=== PATIENT | male | born 1990 | race Caucasian/White ===

== ENCOUNTER 2023-09-21 11:15 | Outpatient (REF) | payer MEDICAID, SELFPAY ==
[2023-09-22 12:48] LABS: GC Result Negative (Negative)
[2023-09-22 14:44] LABS: Chlamydia Result Positive (Negative); Specimen Description URINE
== END 2023-09-21 11:16 | disposition home or self-care (01) ==
LOC: LBN 11:15
PROVIDERS: PCP Nurse Practitioner Family; Visit Provider Nurse Practitioner Family
DX: R30.0 Dysuria (principal)
CPT/HCPCS: 87491; 87591

== ENCOUNTER → 2023-10-18 12:27 | Outpatient (CLI) | payer SELFPAY ==
--- NOTE | 2023-10-18 12:15 | DI.RAD_ITS ---
Exam(s) XR KNEE LT 4V AP,LAT,BEN,PAT EXAM: XR KNEE LT 4V AP,LAT,BEN,PAT CLINICAL HISTORY: evaluate pathology, injury, [id number]. TECHNIQUE: 2D digital imaging was performed. COMPARISON: No exams were available for comparison FINDINGS: Four views. No evidence of fracture nor joint space narrowing. No osteochondral defects. Bone density normal. No osseous lesions. No osteochondral defects. There appears to be a small amount of increased joint fluid. IMPRESSION: No acute osseous findings. Small amount of increased joint fluid noted. DATA REPOSITORY: RADIATION DOSE DELIVERED:
== END ==
PROVIDERS: PCP Nurse Practitioner Family; Visit Provider Nurse Practitioner Family
DX: S89.92XA Unspecified injury of left lower leg, initial encounter (principal); X58.XXXA Exposure to other specified factors, initial encounter
CPT/HCPCS: 73564

== ENCOUNTER 2023-11-07 14:55 | Outpatient (REF) | payer BC, SELFPAY ==
[2023-11-08 19:33] LABS: HIV-1/2 Ag & Ab Screen Negative (Negative)
[2023-11-08 21:07] LABS: Hepatitis C Ab w Rflx HCV PCR Negative (Negative)
[2023-11-09 12:11] LABS: Syphilis Serology (RPR) Negative (Negative)
[2023-11-09 13:08] LABS: Chlamydia Result Negative (Negative); GC Result Negative (Negative)
== END 2023-11-07 14:56 | disposition home or self-care (01) ==
LOC: LBN 14:55
PROVIDERS: PCP Nurse Practitioner Family; Visit Provider Nurse Practitioner Family
DX: Z20.2 Contact with and (suspected) exposure to infections with a predominantly sexual mode of transmission (principal); Z11.4 Encounter for screening for human immunodeficiency virus [HIV]; Z11.59 Encounter for screening for other viral diseases
CPT/HCPCS: 86803; 87389; 87491; 87591; 86592

== ENCOUNTER 2023-12-07 16:53 | Outpatient (REF) | payer BC, SELFPAY ==
[2023-12-09 14:17] LABS: Chlamydia Result Negative (Negative); GC Result Negative (Negative)
== END 2023-12-07 16:54 | disposition home or self-care (01) ==
LOC: LBN 16:53
PROVIDERS: PCP Nurse Practitioner Family; Visit Provider Nurse Practitioner Family
DX: Z11.3 Encounter for screening for infections with a predominantly sexual mode of transmission (principal)
CPT/HCPCS: 87491; 87591

== ENCOUNTER 2024-03-08 12:12 | Outpatient (REF) | payer BC, SELFPAY ==
[2024-03-09 09:34] LABS: HIV-1/2 Ag & Ab Screen Negative (Negative)
[2024-03-09 13:27] LABS: Chlamydia Result Negative (Negative); GC Result Negative (Negative)
[2024-03-11 12:23] LABS: Hepatitis A Antibody IgM Negative (Negative); Hepatitis B Core Antibody Negative (Negative); Hepatitis B surface Ag Negative (Negative); Hepatitis C Ab w Rflx HCV PCR Negative (Negative)
[2024-03-11 13:01] LABS: Syphilis Serology (RPR) Negative (Negative)
[2024-03-13 10:37] LABS: HSV Type 1 Ab, IgG Negative (Negative); HSV Type 2 Ab, IgG Equivocal (Negative)
== END 2024-03-08 12:13 | disposition home or self-care (01) ==
LOC: LBN 12:12
PROVIDERS: PCP Nurse Practitioner Family; Visit Provider Physician Assistant
DX: Z20.2 Contact with and (suspected) exposure to infections with a predominantly sexual mode of transmission (principal); R21 Rash and other nonspecific skin eruption
CPT/HCPCS: 86704; 86709; 86803; 87340; 87389; 87491; 87591; 86592; 86695; 86696

== ENCOUNTER 2024-04-17 01:38 | Outpatient (CLI) | payer BC, SELFPAY ==
[2024-04-17 12:35] LABS: Calculated LDL 65 mg/dL (<100); Cholesterol 146 mg/dL (<200); HDL Cholesterol 61 mg/dL (40-60); Triglyceride 101 mg/dL (<150)
[2024-04-17 12:36] LABS: Hemoglobin A1C 5.3 % (<5.7)
[2024-04-19 10:28] LABS: HSV Type 1 Ab, IgG Negative (Negative); HSV Type 2 Ab, IgG Positive (Negative)
== END 2024-04-17 01:39 | disposition home or self-care (01) ==
LOC: LOS 01:38
PROVIDERS: PCP Nurse Practitioner Family; Visit Provider Nurse Practitioner Family
DX: Z11.3 Encounter for screening for infections with a predominantly sexual mode of transmission (principal); Z13.1 Encounter for screening for diabetes mellitus; Z13.220 Encounter for screening for lipoid disorders
CPT/HCPCS: 36415; 80061; 83036; 86695; 86696

== ENCOUNTER 2025-07-07 15:13 | Emergency (ER) | payer BC, SELFPAY ==
[2025-07-07 15:31] VITALS: BP 169/87; PULSE 69; RESP 18; TEMP 36.8; O2SAT 98
--- NOTE | 2025-07-07 15:53 | DI.RAD_ITS ---
Exam(s) XR FOOT LT COMPLETE EXAM: XR FOOT LT COMPLETE CLINICAL HISTORY: Injury, swelling. TECHNIQUE: 2D digital imaging was performed. COMPARISON: No exams were available for comparison FINDINGS: 3 views No evidence of acute fracture or diastasis of the Lisfranc joint. Great toe metatarsophalangeal joint appears unremarkable. The more lateral the 2 sesamoid bones this level is bipartite. No degenerative changes in the articulations of the foot. No pes planus. No inferior calcaneal spur. No gas in soft tissues. No radiopaque foreign bodies. IMPRESSION: No significant osseous findings in the left foot. DATA REPOSITORY: RADIATION DOSE DELIVERED:
--- NOTE | 2025-07-07 16:37 | W.ED.GENAD ---
Discharge Plan Disposition Patient Disposition: Home Condition: Stable Discharge Details Clinical Impression: Sprain of foot, left, Fall involving skateboard as cause of accidental injury, Road rash Primary Care Provider: Mart Barker ED Provider: Dimple Smith Home Meds and New Rx's Prescriptions: No Action dorzolamide-timolol 22.3-6.8 mg/mL drops 1 drp ophthalmic (eye) BID Patient Comments: INSTILL 1 DROP INTO THE LEFT EYE TWICE DAILY valacyclovir 500 mg tablet 500 mg PO QDAY Qty: 90 3RF Claritin Liqui-Gel 10 MG capsule 10 mg PO daily prn Discharge Instructions Instructions: Walking Boot, Using Cold for Pain, Foot Sprain ED Additional Instructions: At this time the x-ray shows no acute fracture or broken bone. However please wear the walking boot with the crutches, advance as tolerated. When sitting or lying down, rest ice compression and elevation. If it continues to bother you after 2 to 3 weeks please have her reimage with your PCP. Please wash the rash and abrasions with soap and water, no soaking or swimming. Allow to air dry daily. Please take Tylenol or Ibuprofen with food every 4-6 hours as needed for pain and swelling. Follow up with primary care provider in 3-5 days. Return to ED sooner if any worsening chest pain, abdominal pain, headache vomiting, red streaks or signs infection from any scrapes. Or concerns. Thank you for allowing us to care for you today. Referrals: Mart Barker, [facility] [Primary Care Provider, Medicine] - 2 weeks Referral Note: ER follow up Trauma foot pain Discharge Data Discharge Date/Time-TO BE ENTERED AT DEPARTURE: 07/07/25 17:23 HPI General Mode of arrival: ambulatory (Crutches). Date/Time Provider Initiated Documentation: 07/07/25 15:53. Limitations to Documentation: no limitations. Information obtained by: patient, RN notes reviewed and old records reviewed. HPI Narrative: 20-aget-awvr-old male presents to the ER with chief complaint of left foot pain, swelling right knee and right arm abrasion and some road rash after falling off a electric skateboard. Reports no head injury denies any neck pain back pain chest pain or abdominal pain. His major complaint is his left foot. There is no obvious deformity, does have lateral foot pain. Did not take any medications prior to arrival. He reports having inability to put weight on his foot without pain. Related Data Home Medications ?Medication ?Instructions ?Recorded ?Confirmed loratadine 10 mg capsule (Claritin 10 mg PO daily prn 05/08/18 07/07/25 Liqui-Gel) Held on 07/07/25. Instructions: Pt Stopped/Never Started dorzolamide 22.3 mg-timolol 6.8 1 drp ophthalmic (eye) BID 11/20/24 07/07/25 mg/mL eye drops Held on 07/07/25. Instructions: Pt Stopped/Never Started valacyclovir 500 mg tablet 500 mg PO QDAY #90 tabs 11/20/24 07/07/25 Held on 07/07/25. Instructions: Pt Stopped/Never Started Previous Rx's ?Medication ?Instructions ?Recorded valacyclovir 500 mg tablet 500 mg PO QDAY #90 tabs 11/20/24 Held on 07/07/25. Instructions: Pt Stopped/Never Started Allergies Allergy/AdvReac Type Severity Reaction Status Date / Time No Known Allergies Allergy Verified 07/07/25 15:34 General Stated Complaint: Orthopedic XENA: 4 Review of Systems All systems reviewed & are unremarkable except as noted in HPI and below Constitutional Constitutional: Denies headache(s) ENT Ears, Nose, Mouth, and Throat: Denies vertigo, Denies dizziness and Denies headache(s) Cardiovascular Cardiovascular: Denies chest pain and Denies dyspnea Respiratory Respiratory: Denies dyspnea Gastrointestinal Gastrointestinal: Denies abdominal pain Musculoskeletal Musculoskeletal: Reports as per HPI, Reports arthralgias, Denies numbness and Reports stiffness Integumentary/Breasts Skin/Breast: Reports skin pain, Reports skin swelling, Reports wounds (Abrasion noted to his right elbow right knee and posteriorly upper back, ) and Reports other (Rash, superficial contaminated abrasions) Neurologic Neurologic: Reports as per HPI, Denies abnormal speech, Denies vertigo, Denies dizziness, Denies headache(s) and Denies numbness Exam Narrative Exam Narrative: General: Well Developed, Awake and Alert, conversant. Skin: Warm and Dry HEENT: Head: No palpable deformities, Normocephalic Eyes: Pupils PERRLA, EOM's intact. No periorbital eccymosis or step off Ears: Canal patent. Tympanic membranes are clear . No tobar's sign, no hemptympanum. Nose/Face: Atraumatic. Facial bones nontender to palpation and stable with manipulation. Mouth/Throat: No intraoral trauma. Teeth and mandible are intact. Neck: No midline tenderness, no step off, no deformity to palpation of C-spine. Trachea midline. Chest: No surface trauma. Nontender without crepitus or deformity. Lungs clear to ausculatation bilaterally. Heart: RRR, no rubs, murmurs or gallop. Abdomen: No abrasions, ecchymosis, or surface trauma. Nondistended. Nontender to palpation no guarding, rebound, or rigidity. Pelvis: Nontender to palpation and stable to compression. Femoral pulses strong and equal Extremities: Superficial contaminated abrasions noted to right anterior knee, right elbow and right posterior upper back sensation intact. Peripheral pulses intact and equal. Left foot pain lateral foot. No obvious deformity distal CMS intact. Neuro: ANO x4, GCS 15, cranial nerves II through XII intact. Motor and sensory exam nonfocal. Reflexes are symmetric. Course Vital Signs Vital signs: Vital Signs Temperature 36.8 C 07/07/25 15:31 Pulse 69 07/07/25 15:31 Respiratory Rate 18 07/07/25 15:31 Blood Pressure 169/87 H 07/07/25 15:31 Pulse Oximetry 98 07/07/25 15:31 Temperature 36.8 C 07/07/25 15:31 Pulse 69 07/07/25 15:31 Respiratory Rate 18 07/07/25 15:31 Blood Pressure 169/87 H 07/07/25 15:31 Pulse Oximetry 98 07/07/25 15:31 Pain Level 7 07/07/25 15:31 Medical Decision Making 57-xsik-[age]-old male presents to the ER with chief complaint of left foot pain, swelling right knee and right arm abrasion and some road rash after falling off a electric skateboard. Reports no head injury denies any neck pain back pain chest pain or abdominal pain. His major complaint is his left foot. There is no obvious deformity, does have lateral foot pain. Did not take any medications prior to arrival. He reports having inability to put weight on his foot without pain CT foot results below, the lateral foot sesamoid bone is bipartite, however no acute fracture or osseous findings noted. Will place patient in a walking boot with crutches toe-touch advance as tolerated. Will instruct on care of wound care, rash observation follow-up with Ortho if needed and strict return instructions. This text was generated using [employer] Mars[employer] system, please disregard any oddities of phrase or misspellings. Imaging Data Radiologic Study: Imaging: X-Ray Radiologist's impression: XR FOOT LT COMPLETE EXAM: XR FOOT LT COMPLETE CLINICAL HISTORY: Injury, swelling. TECHNIQUE: 2D digital imaging was performed. COMPARISON: No exams were available for comparison FINDINGS: 3 views No evidence of acute fracture or diastasis of the Lisfranc joint. Great toe metatarsophalangeal joint appears unremarkable. The more lateral the 2 sesamoid bones this level is bipartite. No degenerative changes in the articulations of the foot. No pes planus. No inferior calcaneal spur. No gas in soft tissues. No radiopaque foreign bodies. IMPRESSION: No significant osseous findings in the left foot. 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) Surgical History [place]04[place] [facility] [place] Appendectomy (~1997) Family History Mother Essential hypertension Hyperlipidemia Heart disease Maternal Grandmother Dementia Social History (Updated 11/20/24 @ 12:43 by Alexus Wetzel) Smoking/Tobacco Use Status: Current-Occasional Second Hand Exposure: Yes Smoking risk assessment performed?: Yes Alcohol Intake: current Alcohol Intake frequency: a few times a month Alcohol type: beer and hard liquor Details: 6 or more drinks monthly Drug use: Daily Substance use type: marijuana Counseling given: Yes Adopted: No Caregiver/Support person: No Foster care: No Household members: children Housing: house Number of Children: 1 Communication Needs: None Education Level: college Do you need help understanding health information?: Never current occupation: Manager [employer] Pets and animals: Yes Pets and animals: cat(s), fish, hamster(s) and turtle(s) Sexually active: Yes Do you think of yourself as: straight/heterosexual What is your relationship status?: never How often do you talk on the phone with friends or family?: three or more times per week How often do you get together with friends or relatives?: twice per week How often do you attend mosque or hoahaoism services?: decline to answer Do you belong to any clubs or organized social groups?: no Panel score (0-1 are the most socially isolated patients): 1 What type of physical activity do you participate in: regular exercise Duration: 30-45 minutes/day Frequency: 1-2 times per week Agree to transfusion: Yes Seatbelt use: always Helmet use: Yes Helmet use: always Drive intox or ride w/intox mobile lounge driver or operator: No Working smoke detector in home: Yes Carbon monox detector in home: Yes Firearms in home: Yes Firearms unloaded and locked: Yes Do you feel safe at home: Yes Do you feel safe in your relationship?: Yes Victim of physical abuse: No Victim of emotional abuse: No Victim of sexual abuse: No
--- NOTE | 2025-07-07 17:22 | NUR.NOTE ---
Nursing Note: this RN did wouynd care on road rash on shoulder, right elbow and right knee. All wounds cleansed, and dressed gave verbal wound care orders to PT
== END 2025-07-07 17:23 | disposition home or self-care (01) ==
PROVIDERS: Emergency Provider Registered Nurse Emergency; PCP Nurse Practitioner Family
DX: S93.602A Unspecified sprain of left foot, initial encounter (principal); S80.211A Abrasion, right knee, initial encounter; S50.311A Abrasion of right elbow, initial encounter; S20.411A Abrasion of right back wall of thorax, initial encounter; F17.200 Nicotine dependence, unspecified, uncomplicated; V00.131A Fall from skateboard, initial encounter; Y92.488 Other paved roadways as the place of occurrence of the external cause; Y93.51 Activity, roller skating (inline) and skateboarding
CPT/HCPCS: 99283; 73630

== ENCOUNTER 2025-07-21 03:32 | Outpatient (CLI) | payer BC, SELFPAY ==
--- NOTE | 2025-07-21 06:45 | DI.MRI_ITS ---
Exam(s) MR LOWER EXTREMITY LT WO EXAM: MR LOWER EXTREMITY LT WO CLINICAL HISTORY: Midfoot pain,dislocation tarsometataral joint lt foot, sprain, contusion, TECHNIQUE: Multiplanar multisequence MRI was performed without intravenous contrast. COMPARISON: CR XR FOOT LT COMPLETE from 07/07/2025 FINDINGS: SKIN: No evidence of ulcer nor subcutaneous tract. BONES/JOINTS: There is bone edema evident in the bases of the 2nd, 3rd, and 4th metatarsals and there is no oblique nondisplaced fracture in the medial base of the 4th metacarpal.. The fracture line at this level violates the 4th tarsometatarsal joint. There is no bone edema in the mid and distal aspects of the metatarsals nor in the metatarsophalangeal joints with the exception of tiny subcortical cysts in the base of the proximal phalanx of the great toe indicating some degenerative change. No abnormal signal in the phalanges. There is also some bone edema in the distal lateral aspect of the cuboid as well as within the subarticular regions of the 3 cuneiform bones. There is also some focal bone edema in the proximal subarticular aspect of the navicular which has the appearance of developing degenerative subarticular cysts at this level. There is no abnormal intraosseous signal in the talus. There is a small joint effusion in the calcaneocuboid joint. There is a small benign-appearing cyst in the posterior calcaneus anterior to the intact Achilles insertion site. ACHILLES TENDON: Intact PLANTAR FASCIA: Intact There are mild degenerative changes in the great toe metatarsophalangeal joint and there is a small joint effusion at this level.. LISFRANC LIGAMENT: Absence of the normally visualized T1 hypointense main Lisfranc ligament consistent with tearing. There is, however, no offset of the cortical surfaces at this level nor at the other tarsometatarsal joints. The inter metatarsal ligament between the medial and middle cuneiforms exhibits some high signal and the other inter metatarsal ligaments are poorly visualized. OTHER LIGAMENTS: No obvious tears evident. SINUS TARSI: Unremarkable. Normal appearance of inter osseous ligament and intra space fat signal TENDONS: Peroneus longus and brevis tendons on the lateral aspect appear intact. Flexor hallucis longus appears intact. Tibialis posterior tendon appears intact. Flexor digitorum longus tendon appears intact. MUSCLES: There is some edema in the the musculature on the plantar aspect of the foot OTHER FINDINGS: No evidence of interdigital Jackson's neuroma. There is a small benign nonexpansile cyst in the posterior aspect of the calcaneus, measuring 5 x 6 mm IMPRESSION: 1. There is a minimally displaced oblique fracture at the base of the 4th metatarsal which violates the articular surface of the 4th tarsometatarsal joint. There is also significant bone edema in the bases of the 2nd and 3rd metatarsals with possible occult microtrabecular fractures at these levels. Th ere is, however, no truly defined T1 hypointense fracture lines at these metatarsal bases. There are also small additional foci of bone edema in the distal cuneiform bones and lateral aspect of the cuboid consistent with bone contusions. There is no evidence of dislocation nor offset of the articulations at this time. No evidence of midfoot collapse nor pes planus. 2. There is increased T2 signal and absence of the normally visualized T1 hypo intense signal within the main Lisfranc ligament, this implying tearing of this structure. There is presently no offset of the articular cortices at this level. DATA REPOSITORY:
--- NOTE | 2025-07-21 20:04 | DI.VRAD_ITS ---
PROCEDURE INFORMATION: Exam: MR Left Lower Extremity Other Than Joint Without Contrast; Foot Exam date and time: 07/21/2025 3:29 PM Age: 34 years old Clinical indication: Midfoot pain, dislocation tarsometataral joint lt foot, sprain, contusion, TECHNIQUE: Imaging protocol: Magnetic resonance imaging of the left lower extremity without contrast. Exam focused on the foot. COMPARISON: CR XR FOOT LT COMPLETE 07/07/2025 4:19 PM FINDINGS: Bones/joints: Focal edema noted within the base of the metatarsal bones, greatest in the 2nd, 3rd and 4th bones. There is evidence of an oblique fracture at the base of the 4th metatarsal bone and septal fractures in the 2nd and 3rd metatarsal bones are not excluded. Foci of edema seen in the 1st, 2nd and 3rd cuneiform bones, also likely related to prior injury. The lateral aspect of the cuboid bone also exhibits edema. A subchondral cyst is seen in the navicular bone at the talonavicular articulation. LIGAMENTS: Lisfranc ligament: The Lisfranc ligaments are not well visualized, suspicious for a tear. TENDONS: Flexor tendons of foot: Unremarkable. No evidence of tear. Tibialis posterior tendon: Unremarkable as visualized. Peroneal tendons: Unremarkable as visualized. Extensor tendons of foot: Unremarkable. No evidence of tear. Tibialis anterior tendon: Unremarkable as visualized. Tarsal canal (Sinus tarsi): Unremarkable. Tarsal tunnel: Unremarkable. Soft tissues: Unremarkable. Plantar fascia: Unremarkable as visualized. IMPRESSION: 1. Fracture at the base of the 4th metatarsal bone and possible occult fractures in the base of the 2nd and 3rd metatarsal bones. 2. Additional foci of edema in multiple bones throughout the foot may be compatible with injury. No definite evidence of joint dislocation at this time. 3. Lisfranc ligament is not well delineated and is suspicious for tear. Dictated and Authenticated by: Leslie Sue MD. Orderin Kori Ling MD
== END 2025-07-21 03:52 ==
LOC: DI 03:32
PROVIDERS: PCP Nurse Practitioner Family; Visit Provider Podiatrist
DX: S93.325A Dislocation of tarsometatarsal joint of left foot, initial encounter (principal); S93.622A Sprain of tarsometatarsal ligament of left foot, initial encounter; S90.32XA Contusion of left foot, initial encounter; T14.8XXA Other injury of unspecified body region, initial encounter; V00.131A Fall from skateboard, initial encounter; S92.342A Displaced fracture of fourth metatarsal bone, left foot, initial encounter for closed fracture
CPT/HCPCS: 73718